=== PATIENT | male | born 1955 | race Caucasian/White ===

== ENCOUNTER 2017-01-03 10:59 | Inpatient (IN) ==
[2017-01-03] MEDS ORDERED: CeFAZolin Pre 2,000 MG/100 ML 2,000 MG/100 ML BAG IVPB ONE (11:34)
[2017-01-03] MEDS ORDERED: Albuterol 2.5 MG/3 ML NEBULIZER IH ONE (11:34)
[2017-01-03] MEDS ORDERED: Ringers Solution, Lactated 500 ML IVC SCH (11:45)
--- NOTE | 2017-01-03 12:08 | Anesthesia Evaluation PreOp ---
Date of Encounter: 01/03/17 Time of Encounter: 12:06 - Past History Planned Operation: R shoulder rotator cuff arthropathy Cardiac History: Denies any Significant Hx Pulmonary History: Smoker EXECUTIVE PERSONAL ASSISTANT History: Denies Any Significant HX Other Medical History: Denies Any Significant HX Anesthesia History: No Prior Anesthetic Complications (never been exposed to anesthesia previously; no fhx of problems with anesthsia) Alcohol Use: occasionally, recent Drug use: none Medications and Allergies No Known Home Drugs 01/03/17 [History] Allergies tramadol Adverse Reaction (Verified 01/03/17 11:42) Nausea - Meds/Allergy Pre-op Review Medications Reviewed: Yes Allergies Reviewed: Yes Beta Blockers on Current Med List: No Anesthesia Results - Labs Laboratory Tests 12/25/16 12/25/16 12/25/16 15:34 15:34 15:34 WBC 8.0 Hgb 15.1 Hct 45.6 Plt Count 290 PT 11.0 INR 1.0 APTT 31.1 Sodium 143 Potassium 3.8 Chloride 108 Carbon Dioxide 25 BUN 15 Creatinine 0.88 Est GFR ( Amer) > 60 Est GFR (Non-Af Amer) > 60 BUN/Creatinine Ratio 17 Anesthesia Exam Last Vital Signs Temp 98 F 01/03/17 11:47 Pulse 74 01/03/17 11:47 Resp 16 01/03/17 11:47 BP 135/78 01/03/17 11:47 Pulse Ox 97 01/03/17 11:47 Weight: 70 kg NPO (# of Hours): >> 8 hrs - HEENT Pupil (Motor): Pupils equal, EOMI Mallampati: II Teeth: Missing, Poor dentition Oral Opening: Greater than 3 - EXECUTIVE PERSONAL ASSISTANT LOC: Oriented EXECUTIVE PERSONAL ASSISTANT Motor: Normal RUE, Normal LUE, Normal RLE, Normal LLE, Normal Face EXECUTIVE PERSONAL ASSISTANT Sensory: Normal: RUE, LUE, RLE, LLE, Face - Cardiac Rhythm: Regular Murmur: None - Pulmonary Breath Sounds: bilateral Clear Respiratory Effort: Symmetrical Anesthesia Assess/Plan ASA Score: 2 Modified Fatimah Scale for Level of Consciousness: Cooperative, oriented, and tranquil Anesthetic Plan: General, Regional Monitoring Plan: Standard Monitors Recovery Plan: PACU
--- NOTE | 2017-01-03 13:47 | History & Physical Report ---
Date of Encounter: 01/03/17 Time of Encounter: 13:47 24 Hour HP Update - Instructions Instructions: If the History and Physical is less than 30 days old and was completed prior to A.M. admission and or procedure and has NOT been updated on calendar day of procedure please complete this update prior to performing procedure. - Update Patient reports changes in Medical Condition: No Changes in assessment/condition: No Changes in Medication: No Preop tests/diagnostics Reviewed: Yes Surgery Remains Indicated: Yes Consent for Planned Operative Procedure(s) Verified: Yes - Pre-Operative Checklist Preoperative Checklist Indicated: No Prophylactic Antibiotic Ordered: Yes Is VTE Prophylaxis Indicated?: Yes
[2017-01-03] MEDS ORDERED: *HR* FentaNYL (PF) 100 MCG/2 ML VIAL ONE (14:14)
[2017-01-03] MEDS ORDERED: *HR* Propofol 200 MG/20 ML VIAL IVP ONE ×2 (14:14→15:14)
[2017-01-03] MEDS ORDERED: *HR* Midazolam HCl 2 MG/2 ML VIAL ONE (14:14)
[2017-01-03] MEDS ORDERED: Lidocaine -MPF 2% 2 ML VIAL ONE (14:15)
[2017-01-03] MEDS ORDERED: *HR* Succinylcholine 200 MG/10 ML VIAL IVP ONE (14:15)
[2017-01-03] MEDS ORDERED: Bupivacaine-MPF 0.25% 10 ML VIAL ONE (14:17)
--- NOTE | 2017-01-03 14:47 | Anesthesia Procedures ---
Date of Encounter: 01/03/17 Time of Encounter: 14:45 Procedures: Anesthesia - Nerve Block Procedure Date: 01/03/17 Time: 14:45 Allergies/Adv Reactions: Allergies tramadol Adverse Reaction (Verified 01/03/17 11:42) Nausea Pre-op Diagnosis: right rotator cuff arthropathy Surgical Procedure: right shoulder reverse ball Checklist: Correct Patient Identifier, Correct procedure, History checked Correct side: Right Blood Thinner: No Monitor Applied: EKG, BP, Pulse Oximetry Supplemental Oxygen via Nasal Cannula (L/min): 2 Sedation: Versed (mg): 2 Sedation: Fentanyl (mcg): 100 Indication: Post Op Analgesia Pre-op Neuro Deficits: No Block Type: Supraclavicular Catheter placed: No Sterile Technique: Yes Ultrasound used: Yes Anatomy identified: Yes Visual spread of Local: Yes Neuro Stimulation: No Blood on Needle Aspiration: No Smooth Injection of Local: Yes Pain with Injection of Local: No Prep: Chlorhexadine Needle: 22 x 50 mm Stimuplex Local: 0.25% Bupivicaine w/Clonidine 20 mcg/cc Volume (cc): 30 Number of Attempts: 1 Complications: None/effective block Vitals: Vital Signs/O2 Sat, Most Current Temp Pulse Resp BP Pulse Ox 98 F 71 18 123/83 99 01/03/17 11:47 01/03/17 14:40 01/03/17 14:40 01/03/17 14:40 01/03/17 14:40 BP 113/78 HR 65 RR 18 SPO2 98 Comments: Peripheral nerve block with ultrasound for postoperative pain relief per Dr Gillis request
--- NOTE | 2017-01-03 15:08 | Discharge Summary ---
Date of Encounter: 01/03/17 Time of Encounter: 17:57 - Discharge Diagnosis (1) Tobacco abuse Priority: Secondary Status: Chronic (2) Rotator cuff tear arthropathy of right shoulder Priority: Primary Status: Acute - Discharge Medications Home Medications: OxyCODONE Immed Rel [Roxicodone 5 MG] 5 - 10 mg PO Q6HR PRN #30 tablet 01/03/17 [Rx] Allergies/Adverse Reactions: Allergies tramadol Adverse Reaction (Verified 01/03/17 11:42) Nausea - Patient Status Disposition: Home, Self-Care Condition: Good Functional capacity at discharge: independent ambulation Overall status at discharge: patient is progressing back to baseline - Discharge Instructions - Hospital Course Hospital course: Mr. Hager is a 61 year old male The patient had an uneventful postoperative course. They received antibiotics and physical therapy and were discharged in stable condition. There will follow -up in the office in 2 weeks. - Time Spent with Patient Total time spent providing and/or coordinating discharge services:
[2017-01-03] MEDS ORDERED: Ondansetron 4 MG/2 ML VIAL IVP ONE (15:09)
[2017-01-03] MEDS ORDERED: *HR* HYDROmorphone (PF) 1 MG/ML SYRINGE IVP PRN (15:09)
[2017-01-03] MEDS ORDERED: Ondansetron 4 MG/2 ML VIAL ONE (15:22)
[2017-01-03] MEDS ORDERED: Dexamethasone 4 MG/ML VIAL ONE (15:22)
[2017-01-03] MEDS ORDERED: *HR* Phenylephrine 10 MG/ML VIAL ONE (15:25)
--- NOTE | 2017-01-03 15:54 | Orthopedic Operative Note ---
Date of procedure: 01/03/17 Pre-op diagnosis: right shoulder cuff tear arthropathy Post-op diagnosis: same Procedure: Procedure: Right Total Shoulder Replacment Reverse Estimated blood loss: 100 cc Hardware:Arthrex large glenoid baseplate, 2 4.5 screws. 1 6.5 screw, 42 lateral glenosphere, 9 humeral stem, poly insert 3 9 metal Exam Under anesthesia: Full motion and no instability Procedural Notes: Irreparable tear supraspinatus and subscapularis Operative procedure: The patient was brought to the operating room and placed on the operating room table. After general anesthesia was administered the operative shoulder was examined. Findings were noted. The patient was placed in the modified beachchair position. All pressure points were padded appropriately. And the head was stabilized in the neutral position. The operative extremity was prepped and draped in the sterile surgical fashion. The patient received IV antibiotics prior to skin incision. A standard deltopectoral approach was made to the operative shoulder. Incision was made to the skin and subcutaneous tissue,hemo stasis was obtained with Bovie cautery. Using careful blunt dissection the cephalic vein was identified and mobilized medially. The deltopectoral interval was developed and the clavipectoral fascia was incised. The subscap was irreparable. The humerus was dislocated patient noted to have irreparable tear supraspinatus tendon as well, and the humeral cut was made along the anatomic neck. Anterior and posterior Bankart retractors were placed to expose the glenoid. The glenoid guide was seated and the centering hole was made. It was reamed with the appropriate large reamer. The large baseplate was seated and secured with (2) 4.5 screws and one 6.5 screw. The baseplate was irrigated and dried and the 42 lateral Glenosphere was seated and secured with the Madden taper. The Madden taper was tested and found to be secure the humerus was redislocated and prepared with the diaphyseal reamers, followed by a broaching process up to the appropriate size 9 in the patient's anatomic version. The metaphyseal reamer was then utilized. Trial reduction found the shoulder to be relocatable. The appropriate 9 stem was impacted in place in the patient's anatomic version. Trial reduction found the shoulder to be relocatable and stable with the 9 medical 3 Neetu Trial component was removed and the 9 metal 3 Neetu was seated and secured the shoulder was reduced. The shoulder had excellent motion and excellent stability and no evidence of dislocation. The deep tissue was irrigated with pulse irrigation. The deltopectoral interval was closed with a running #1 PDS suture, subcutaneous tissue was irrigated and closed with 0 PDS suture, the skin was closed with Dermabond. The patient was placed in a sterile dressing, abduction brace and extubated. The patient was then transferred to the recovery room in stable condition. Anesthesia: GETA Surgeon: Prashant Gillis Condition: stable Disposition: PACU
[2017-01-03 16:27] LABS: Hematocrit 44.5 % (37.5-50.1); Hemoglobin 14.9 g/dL (12.9-16.9)
--- NOTE | 2017-01-03 16:40 | Anesthesia Evaluation Post Op ---
Date of Encounter: 01/03/17 Time of Encounter: 16:40 - Vital Signs Vital Signs: Last Vital Signs Temp 97.8 F 01/03/17 16:27 Pulse 81 01/03/17 16:27 Resp 16 01/03/17 16:27 BP 126/72 01/03/17 16:27 Pulse Ox 100 01/03/17 16:27 - Lungs Lungs: Clear Ascult./Percussion - Airway Airway: Non-obstructed - Cardiovascular Regular Rate - Mental Status Mental Status: Alert & Oriented, Answers Appropriately - Pain Pain Scale: 2 - Nausea Vomiting Nausea Vomiting: Not Present - Hydration Hydration: Ice chips - Discharge PostOp Status: Transfer Patient to floor
[2017-01-03] MEDS ORDERED: Ondansetron 4 MG/2 ML VIAL IVP PRN (17:12)
[2017-01-03] MEDS ORDERED: Temazepam 15 MG CAPSULE PO PRN (17:12)
[2017-01-03] MEDS ORDERED: *HR* OxyCODONE/APAP 5/325 TABLET PO PRN (17:12)
[2017-01-03] MEDS ORDERED: Sennosides 8.6 MG TABLET PO PRN (17:12)
[2017-01-03] MEDS ORDERED: Naloxone 0.4 MG/ML INJ IVP PRN (17:12)
[2017-01-03] MEDS ORDERED: MOM Conc 10 ML UD.LIQ PO PRN (17:12)
[2017-01-03] MEDS ORDERED: Ringers Solution, Lactated 1,000 ML IVC SCH (17:12)
[2017-01-03] MEDS ORDERED: ceFAZolin 2,000 MG in D5% in Water 100 ML IVPB SCH ×2 (17:57→19:00)
[2017-01-03] MEDS ORDERED: *HR* Enoxaparin 30 MG/0.3 ML SYRINGE SQ SCH ×2 (18:00)
[2017-01-03 20:43] VITALS: BP 118/71
== END 2017-01-03 21:00 | disposition home or self-care (01) | DRG 315 ==
LOC: SAMDAY 10:59 → 3NENU 16:28
PROVIDERS: ADMIT Orthopaedic Surgery; ATTEND Orthopaedic Surgery